=== PATIENT | female | born 1980 | race Caucasian/White ===

== ENCOUNTER 2016-06-19 21:30 | Inpatient (IN) | payer OTHER ==
[~2016-06-19] VITALS: Ht 162.6 cm; Wt 75.0 kg
[~2016-06-19 21:30] MED LIST: CALC500C50; MTR600X PO; PRENTAB26 PO
[2016-06-19] MEDS ORDERED: LACTATED RINGER'S 1000ML 1,000 ML IV PRN (22:25)
[2016-06-19] MEDS ORDERED: LACTATED RINGER'S 1000ML 1,000 ML IV SCH (22:25)
[2016-06-19] MEDS ORDERED: EpHEDrine SULFATE INJ 50 MG/ML AMP ONE (22:47)
[2016-06-19] MEDS ORDERED: BUPIVACAINE 0.25% 30 ML VIAL ONE (22:47)
[2016-06-19 22:48] LABS: HEMATOCRIT 35.5 % (37-47); MEAN CELL VOLUME 94.7 fL (80-100); MEAN CORPUSCULAR HEMOGLOBIN 32.5 pg (25-34); MEAN CORPUSCULAR HGB CONC 34.4 g/dl (32-36); MEAN PLATELET VOLUME 9.8 fL (7.4-10.4); PLATELET COUNT 218 K/uL (130-400); RED BLOOD COUNT 3.75 M/uL (4.2-5.4); WHITE BLOOD COUNT 10.08 K/uL (4.8-10.8)
[2016-06-19] MEDS ORDERED: FENTANYL 2MCG/ML ROPIV 1.25MG/ML 100ML BAG EPI ONE (22:48)
[2016-06-19] MEDS ORDERED: FENTANYL CITRATE INJ 50 MCG/1 ML 2 ML VIAL ONE (22:48)
[2016-06-19 23:27] VITALS: Ht 162.6 cm; Wt 75.0 kg
[2016-06-20] MEDS ORDERED: NALOXONE HCL INJ 1 MG in SODIUM CHLORIDE 0.9% 1000ML 1,000 ML IV PRN (00:06)
[2016-06-20] MEDS ORDERED: LACTATED RINGER'S 1000ML 500 ML IV PRN ×2 (00:06→01:02)
[2016-06-20] MEDS ORDERED: FENTANYL 2MCG/ML ROPIV 1.25MG/ML 100ML BAG EPI PRN (00:15)
[2016-06-20] MEDS ORDERED: NALBUPHINE HCL INJ 10 MG/ML AMP IV PRN (00:15)
[2016-06-20] MEDS ORDERED: EpHEDrine SULFATE INJ 50 MG/ML AMP IV PRN (00:15)
[2016-06-20] MEDS ORDERED: DiphenhydrAMINE HCL 50 MG/ML VIAL IV PRN (00:15)
[2016-06-20] MEDS ORDERED: NALOXONE HCL INJ 0.4 MG/1 ML VIAL/CARP IV PRN (00:15)
[2016-06-20] MEDS ORDERED: OXYTOCIN 30 UNITS/500ML NSS IV PRN ×2 (01:15→01:45)
[2016-06-20] MEDS ORDERED: IBUPROFEN 600 MG TAB PO PRN (01:45)
[2016-06-20] MEDS ORDERED: HYDROCORTISONE ACETATE 25 MG SUPP PR PRN (01:45)
[2016-06-20] MEDS ORDERED: ACETAMINOPHEN/CODEINE 300/30MG TAB PO PRN ×2 (01:45)
[2016-06-20] MEDS ORDERED: BENZOCAINE 20% AER SPR 82.5 GM CAN EXT PRN (01:45)
[2016-06-20] MEDS ORDERED: SUPERCREAM 0.870 % 15GM JAR EXT PRN (01:45)
[2016-06-20] MEDS ORDERED: LANOLIN OINT EXT PRN ×2 (01:45)
[2016-06-20] MEDS ORDERED: ACETAMINOPHEN 325 MG TAB PO PRN (01:45)
--- NOTE | 2016-06-20 02:57 | DELIVERY SUMMARY ---
DATE OF OPERATION: 06/20/2016 FINDINGS: Viable female with Apgars of 8 and 9. Baby delivered over a midline second degree laceration. Cord gases, cord blood samples obtained. Placenta delivered spontaneously. Laceration repaired with 4-0 Vicryl in a routine fashion. Estimated blood loss 300 mL. LABOR NOTE: The patient is a 36-year-old 3, para 2 with an EDC of 23 June, 39+ weeks gestational age who presented with spontaneous rupture of membranes. The patient states that fluid ruptured approximately 2000 hours on the 19 of June, clear with subsequent onset of contractions. The patient has had a benign course. She had a normal [id number] for advanced maternal age. Her blood type A positive, antibody negative, rubella immune, hepatitis B negative. She had negative maternal serum AFP, normal 1-hour Glucola x2 and negative third trimester beta strep culture. Upon admission, patient was 4 cm dilated, 70% effaced, -1 station. She began to contract in earnest and contractions increased in intensity. Anesthesia was consulted and an epidural was placed. After the epidural, the patient progressed to full dilatation. She pushed for approximately 10 minutes, delivering a viable female with description as above. Nuchal cord x1 was reduced on the perineum. Cord gases, cord blood samples obtained. The placenta was delivered spontaneously. Inspection of the perineum showed a midline second degree laceration, which was repaired with 4-0 Vicryl in a routine fashion. Estimated blood loss was 300 mL. Sponge and needle count was correct. I attest to the content of the Intraoperative Record and any orders documented therein. Any exceptio ns are noted below.
--- NOTE | 2016-06-20 05:10 | Anesthesia Procedure Note ---
Anesthesia Epidural Removal Nt Date & Time Jun 20, 2016 at 05:09 Vital Signs Pain Intensity: 0.0 Notes Mental Status: alert / awake / arousable Neuraxial Anesthesia: was administered, sensory block is resolved Anesthetic Complications: no major complications apparent, pt satisfied with anesthetic care Epidural: removed without complications, with tip intact
[2016-06-20 07:15] VITALS: BP 121/72; PULSE 80; TEMP 37; O2SAT 98
[2016-06-20] MEDS: FERROUS SULFATE 325 MG TAB PO SCH (09:00)
[2016-06-20] MEDS: DOCUSATE SODIUM 100 MG CAP PO SCH ×2 (09:00→19:40)
[2016-06-20] MEDS: PRENATAL VITAMIN TAB PO SCH (09:00)
[2016-06-20 11:35] VITALS: BP 119/66; PULSE 72; TEMP 37.3; O2SAT 98
[2016-06-20 15:45] VITALS: BP 112/74; PULSE 71; TEMP 37.1; O2SAT 98
[2016-06-20 19:45] VITALS: BP 120/68; PULSE 81; TEMP 36.8
[2016-06-20] MEDS ORDERED: BISACODYL 5 MG TABEC PO SCH (20:00)
[2016-06-20 23:10] VITALS: BP 108/70; PULSE 79; TEMP 36.7; O2SAT 98
--- NOTE | 2016-06-21 06:26 | Progress Note ---
Subjective Jun 21, 2016. Subjective conversation w/ patient, physical exam Ambulation: ambulating normally Voiding: no voiding problems Passing Gas: Yes Diet Tolerance: Clear Liquids Lochia: Small Feeding Type: Breast Feeding Pain: No pain reported this morning Review of Systems Constitutional: No chills, No fever Respiratory: No cough, No shortness of breath Cardiac: No chest pain Breast: No breast pain Abdomen: No nausea, No pain, No vomiting Female : No dysuria Objective Vital Signs Date Time Temp Pulse Resp B/P Pulse Ox O2 Delivery O2 Flow Rate FiO2 06/20/16 23:10 98 Room Air 06/20/16 23:10 36.7 79 18 108/70 98 Room Air 06/20/16 19:45 36.8 81 18 120/68 Room Air 06/20/16 15:45 98 Room Air 06/20/16 15:45 37.1 71 18 112/74 98 Room Air 06/20/16 11:35 37.3 72 18 119/66 98 Room Air 06/20/16 07:15 98 Room Air 06/20/16 07:15 37.0 80 18 121/72 98 Room Air Physical Exam General Appearance: WELL-APPEARING, WD/WN, NO APPARENT DISTRESS Respiratory/Chest: lungs clear, normal breath sounds Cardiovascular: regular rate, rhythm, no gallop, no murmur Abdomen: normal bowel sounds, non tender Fundus: Firm, Relation to Umbilicus (1cm below umbilicus) Extremities: no calf tenderness Laboratory Results Last 24 Hours Test 06/21/16 04:44 Medications Current Inpatient Medications Medications (Trade) Dose Ordered Sig/Svetlana Route Start Time Stop Time Status Last Admin Dose Admin Lactated Ringer's 1,000 ml @ 125 mls/hr Q8H IV 06/19/16 22:25 06/21/16 22:24 06/20/16 02:15 125 MLS/HR Lactated Ringer's (Lr 1000ml) 500 ml @ 999 mls/hr Q31M PRN IV 06/20/16 01:02 07/20/16 01:01 Oxytocin (Pitocin IV) 30 units UD PRN IV 06/20/16 01:45 07/20/16 01:44 Benzocaine (Dermoplast Aero Spr) 1 appln PRN PRN EXT 06/20/16 01:45 07/20/16 01:44 06/20/16 12:13 82.5 APPLN Cocaine HCl (Supercream 0.870% Cr) BID PRN EXT 06/20/16 01:45 07/04/16 01:44 Hydrocortisone Acetate (Anusol Hc Supp) 25 mg BID PRN MA 06/20/16 01:45 07/20/16 01:44 Lanolin (Lanolin Oint) PRN PRN EXT 06/20/16 01:45 07/20/16 01:44 Prenat Multivit/ Colt/Iron/Folic Ac ( Vitamin Tab) 1 tab DAILY PO 06/20/16 08:00 07/20/16 07:59 06/20/16 09:00 1 TAB Ibuprofen (Motrin Tab) 600 mg Q4H PRN PO 06/20/16 01:45 07/20/16 01:44 Acetaminophen (Tylenol Tab) 650 mg Q6H PRN PO 06/20/16 01:45 07/20/16 01:44 Acetaminophen/ Codeine Phosphate (Tylenol w/ Codeine #3 Tab) 1 tab Q4H PRN PO 06/20/16 01:45 07/20/16 01:44 Acetaminophen/ Codeine Phosphate (Tylenol w/ Codeine #3 Tab) 2 tab Q4H PRN PO 06/20/16 01:45 07/20/16 01:44 Docusate Sodium (coLACE CAP) 100 mg BID PO 06/20/16 08:00 07/20/16 07:59 06/20/16 19:40 100 MG Diphtheria/ Pertussis/Tetanus Vacc (Adacel Inj) 0.5 ml ONCE ONCE IM. 06/21/16 09:00 06/21/16 09:01 Ferrous Sulfate (Feosol Tab) 325 mg DAILY PO 06/20/16 08:00 07/20/16 07:59 06/20/16 09:00 325 MG Assessment and Plan Post- Day#: 1 Continue Routine Care: Resident Physician Supervision Note: I interviewed and examined the patient. Discussed with [Name of resident] and agree with findings and plan as documented in the note. Any exceptions or clarifications are listed here: [None] Documented By: Joellen Stiles - Vital Signs reviewed and WNL (temp max 36.3) - Blood Type: A+, GBS- , Rubella Immune - Patient doing well clinically - Encourage Ambulation today - Pain well controlled with Motrin - Advance to PO diet today
[2016-06-21 06:58] LABS: HEMATOCRIT 36.6 % (37-47)
[2016-06-21 07:15] VITALS: BP 128/73; PULSE 80; TEMP 36.9
[2016-06-21] MEDS ORDERED: DIPHTHERIA/TETANUS/PERTUSSIS 0.5 ML SYR/VIAL IM. ONE (09:00)
[2016-06-21] MEDS: DOCUSATE SODIUM 100 MG CAP PO SCH ×2 (09:47→20:04)
[2016-06-21] MEDS: FERROUS SULFATE 325 MG TAB PO SCH (09:47)
[2016-06-21] MEDS: PRENATAL VITAMIN TAB PO SCH (09:47)
[2016-06-21 15:15] VITALS: BP 101/66; PULSE 80; TEMP 36.9; O2SAT 98
[2016-06-21 23:30] VITALS: BP 134/67; PULSE 106; TEMP 37; O2SAT 98
[2016-06-22 07:50] VITALS: BP 116/70; PULSE 72; TEMP 36.9
[2016-06-22] MEDS: PRENATAL VITAMIN TAB PO SCH (08:24)
[2016-06-22] MEDS: FERROUS SULFATE 325 MG TAB PO SCH (08:24)
[2016-06-22] MEDS: DOCUSATE SODIUM 100 MG CAP PO SCH (08:24)
--- NOTE | 2016-06-22 09:29 | Discharge Instructions ---
Discharge Instructions Admission Reason for Admission: Check Labor Discharge Discharge Diagnosis / Problem: status post delivery Discharge Goals Goal(s): Routine recovery after delivery Activity Recommendations Activity Limitations: as noted below . Instructions / Follow-Up Instructions / Follow-Up ACTIVITY RECOMMENDATIONS: * Gradual return to full activity over the next 2-3 weeks. * No lifting - nothing heavier than baby over the next 2-3 weeks. * Do not engage in vigorous exercise, sexual activity or sports until cleared by your physician. * Do not drive or operate any motorized equipment until cleared by your physician. * You may shower/bathe daily. MEDICATIONS: For discomfort or pain, you may use Acetaminophen (Tylenol), Ibuprofen (Advil), or Naproxen (Aleve) following the package directions. For constipation you may use Colace following the package directions. BREAST CARE: If you are not breast feeding: * Wear a supportive bra 24 hours a day for one to two weeks. * Avoid stimulating your breasts and nipples as much as possible during the first few weeks after delivery. * When taking a shower, have the warm water hit your back, not breasts. * When your breasts feel full, apply ice packs. Usually three to four times a day helps ease the discomfort. * Take a mild pain medication (Tylenol / Motrin) when you are uncomfortable. If breast feeding: * Use breast milk to lubricate nipples. Lansinoh cream may be used for sore nipples. You do not need to remove cream prior to breast feeding. If using a different brand of cream, check the label for directions regarding removal of cream prior to nursing. * Wear a supportive bra. * If having problems with breasts or breast feeding, call a clinical education consultant or your health care provider. EPISIOTOMY CARE: After delivery, if you have an episiotomy (stitches), the following steps will ease discomfort and aid healing. * For the first 24 hours after delivery, place ice packs next to your episiotomy to help reduce swelling. * After the first 24 hour-period, sitz baths, either portable or in the tub, are suggested. A shower with a shower arm sprayed over the episiotomy may be comforting. * Rachael care should be done after each voiding and bowel movement. Squirt warm water from a plastic bottle over the perineum (region of the body between the anus and urinary opening) and pat dry. * Use Dermoplast to ease discomfort. Shake container. Sassafras directly over the episiotomy. Place a Tucks on a clean sanitary pad next to your episiotomy. SPECIAL CARE INSTRUCTIONS: When you are discharged from the hospital, it is important for you to follow the instructions listed below: * During the first week at home, you should be able to care for yourself and your baby. In addition, the usual light household activities are encouraged. * Limit your activities to the way you feel. Do not try to clean the house or move furniture. Be sensible. * If you actively engage in sports and have done so up until the time of your delivery, you may resume these activities as soon as you feel able. This may take up to one month or even longer. Use good judgment. * Continue to take your vitamins for at least six weeks after the of your baby. * Your diet need not be limited unless you were on a special diet before your delivery. Breast-feeding mothers need around 2500 calories per day and at least 64-80 ounces of fluid per day (8 to 10 glasses). * You should eat foods from the four major food groups. Crash diets or fad diets are to be avoided. Eating lean meats, fresh fruits and vegetables, low-fat dairy products, high fiber foods and a regular exercise program, will help you get back to your pre- weight without putting your health at risk. * Constipation is sometimes a problem after delivery. Take a mild laxative as needed. If breast feeding, Milk of Magnesia is acceptable to use. You may use a suppository or Fleets enema if no episiotomy. * A daily shower or tub bath is suggested. Be sure to thoroughly and gently dry the perineum. * A bloody vaginal discharge will usually continue until around four weeks post . A small amount of bleeding may continue for as long as six weeks. Vaginal discharge changes from the bright red bleeding after delivery to pink then brownish and finally yellowish-pink before becoming white and disappearing. * Bleeding may increase with activity. Your first period may come in 4-8 weeks. If you are breast feeding, your period may be delayed even longer. * [place] (sex) can begin whenever both you and your partner feel comfortable and do not have any form of genital infection. It is recommended that you wait at least six weeks for internal and external healing to occur. If you have questions, please talk to your health care practitioner. A condom should be used to prevent infection and . * Foreplay, gentle intercourse and lubrication is very important the first several times to prevent pain. A water-based lubricant such as K-Y jelly or Astroglide may be used. * If you have RH negative blood and your baby is RH positive, you will receive RHOGAM by injection prior to discharge. The nurse will give you a card to keep with you that has the date and place that you received RHOGAM after delivery. * During your care, you had a Rubella screen done to check for the presence of rubella antibodies in your blood. If your test was negative, you will receive a Rubella vaccine prior to discharge. This vaccine may cause a fever, soreness at the injection site and flu-like symptoms. If these symptoms persist, notify your health care practitioner. is not advised for one month after a Rubella vaccine. * Verbalizes understanding of car seat law as reviewed with patient nursing. * Car Seat hand-out given and reviewed with patient by nursing. * Shaken baby information reviewed with patient by nursing. Call you doctor if: * Heavy bleeding (saturating several pads an hour) or passing clots the size of your fist. * A fever >101 degrees F (38.3 degrees C) on two occasions four hours apart and /or chills. * Unusual pain in the pelvic or vaginal areas. * "Baby Blues" lasting longer than two weeks. If you have any questions or concerns, call your health care practitioner at . FOLLOW UP VISIT: * Please call the office at to schedule a 6 week examination. It is important you keep this appointment. It is important for you to make arrangements for either yearly or twice yearly check-ups thereafter. Current Hospital Diet Patient's current hospital diet: Regular OB Diet Discharge Diet Recommended Diet: Regular Diet Pending Studies Studies pending at discharge: no Medical Emergencies . Who to Call and When: Medical Emergencies: If at any time you feel your situation is an emergency, please call 911 immediately. . Non-Emergent Contact Non-Emergency issues call your: Primary Care Provider, Refractory Technician Call Non-Emergent contact if: you have a fever . . "Provider Documentation" section prepared by Guadalupe Miller. VTE Core Measure Inpt VTE Proph given/why not?: Treatment not indicated
--- NOTE | 2016-06-22 10:08 | Progress Note ---
Subjective Jun 22, 2016. Subjective conversation w/ patient, physical exam Ambulation: ambulating normally Voiding: no voiding problems Diet Tolerance: Regular Diet Lochia: Small Feeding Type: Breast Feeding Comment: no issues. ready to go home Objective Vital Signs Date Time Temp Pulse Resp B/P Pulse Ox O2 Delivery O2 Flow Rate FiO2 06/22/16 07:50 Room Air 06/21/16 23:30 98 Room Air 06/21/16 23:30 37.0 106 18 134/67 Room Air 06/21/16 15:15 36.9 80 20 101/66 Room Air 06/21/16 15:15 98 Room Air Physical Exam General Appearance: WELL-APPEARING, WD/WN, NO APPARENT DISTRESS Respiratory/Chest: lungs clear Cardiovascular: regular rate, rhythm Abdomen: non tender, soft Fundus: Firm, Relation to Umbilicus (2 down) Extremities: non-tender Assessment and Plan Post- Day#: 2 Continue Routine Care: stable, routine care. f/u 6wks, instructions reviewed, d/c.
[2016-06-22 15:01] VITALS: BP_DIAS 70; PULSE 72; TEMP 36.9
== END 2016-06-22 14:55 | disposition home or self-care (01) | DRG 775 ==
LOC: C.LD 21:30 → C.OPB 21:30 → C.LD 22:27 → C.OBG 06-20 06:50
PROVIDERS: ADMIT Obstetrics & Gynecology; ATTEND Obstetrics & Gynecology
PROC: 10E0XZZ Delivery of Products of Conception, External Approach (ICD-10-PCS; principal; 2016-06-20)
PROC: 0KQM0ZZ Repair Perineum Muscle, Open Approach (ICD-10-PCS; 2016-06-20)
DX: O69.1XX0 Labor and delivery complicated by cord around neck, with compression, not applicable or unspecified (principal); O70.1 Second degree perineal laceration during delivery; Z3A.39 39 weeks gestation of pregnancy; Z37.0 Single live birth

== ENCOUNTER → 2017-08-25 | Outpatient (CLI) | payer BC ==
[~2017-08-25] MED LIST changes: -MTR600X PO
== END | disposition home or self-care (01) ==
LOC: C.PAPS 15:25
PROVIDERS: ATTEND Obstetrics & Gynecology
DX: Z01.419 Encounter for gynecological examination (general) (routine) without abnormal findings (principal)